=== PATIENT | female | born 1985 | race Two or more races ===

== ENCOUNTER 2020-08-16 19:49 | Emergency (ER) | payer MEDICAID, OTHER ==
[~2020-08-16] VITALS: Ht 157.5 cm; Wt 72.6 kg
[2020-08-16 21:50] VITALS: BP 106/61
== END 2020-08-17 01:53 | disposition home or self-care (01) ==
LOC: ER 19:49
DX: S96.911A Strain of unspecified muscle and tendon at ankle and foot level, right foot, initial encounter (principal); X58.XXXA Exposure to other specified factors, initial encounter; Y93.89 Activity, other specified; Y92.89 Other specified places as the place of occurrence of the external cause; Y99.8 Other external cause status
CPT/HCPCS: 73620

== ENCOUNTER 2020-10-13 16:59 | Emergency (ER) | payer MEDICAID ==
[~2020-10-13] VITALS: Ht 157.5 cm; Wt 74.8 kg
[2020-10-13 17:12] VITALS: BP 97/56
== END 2020-10-13 20:23 | disposition home or self-care (01) ==
LOC: ER 16:59
DX: S00.01XA Abrasion of scalp, initial encounter (principal); W19.XXXA Unspecified fall, initial encounter; Y93.89 Activity, other specified; Y92.89 Other specified places as the place of occurrence of the external cause; Y99.8 Other external cause status
CPT/HCPCS: 70450; 72040